=== PATIENT | female | born 1980 | race Hispanic/Latino ===

== ENCOUNTER 2018-09-11 10:55 | Emergency (ER) | payer OTHER, SELFPAY ==
[2018-09-11] MEDS ORDERED: Adacel (T-DAP) 0.5 ML SYRINGE ONE (11:53)
== END 2018-09-11 11:43 | disposition home or self-care (01) ==
LOC: SCSER 10:55
DX: S31.815A Open bite of right buttock, initial encounter (principal); Z23 Encounter for immunization; W54.0XXA Bitten by dog, initial encounter
CPT/HCPCS: 90471; 90715